=== PATIENT | female | born 1990 | race Caucasian/White ===

== ENCOUNTER 2017-05-02 02:08 | Emergency (ER) | payer SELFPAY ==
[~2017-05-02] VITALS: Ht 165.1 cm; Wt 45.4 kg
[2017-05-02] MEDS ORDERED: LORA-259 PO (02:22)
[2017-05-02] MEDS ORDERED: HYDR-3980 PO (02:22)
[2017-05-02] MEDS ORDERED: ONDANSETRON 4 MG/2 ML VIAL IV ONE (03:15)
[2017-05-02] MEDS ORDERED: KETOROLAC TROMETHAMINE 30 MG INJ IVP ONE (03:15)
[2017-05-02] MEDS ORDERED: IV NORMAL SALINE 1000 ML BAG IV ONE (03:15)
[2017-05-02 03:19] LABS: BASOPHILS # (AUTO) 0.1 K/uL (0.0-8.0); BASOPHILS % (AUTO) 1.1 % (0.0-2.0); EOSINOPHILS # (AUTO) 0.6 K/uL (0.0-0.7); EOSINOPHILS % (AUTO) 6.6 % (0.0-7.0); HEMATOCRIT 39.1 % (37-47); HEMOGLOBIN 13.5 G/DL (12.0-16.0); LYMPHOCYTES # (AUTO) 2.5 K/UL (0.8-4.8); LYMPHOCYTES % (AUTO) 27.3 % (20.5-51.5); MEAN CORPUSCULAR HEMOGLOBIN 29.4 UUG (27.0-31.0); MEAN CORPUSCULAR HGB CONC 35 g/dL (32.0-37.0); MONOCYTES # (AUTO) 0.6 K/UL (0.1-1.30); MONOCYTES % (AUTO) 6.4 % (0.0-11.0); NEUTROPHILS # (AUTO) 5.3 K/UL (1.8-8.9); NEUTROPHILS % (AUTO) 58.6 % (38.5-71.5); PLATELET COUNT (AUTO) 196 K/UL (150-450); RED BLOOD CELL COUNT(AUTO) 4.59 MIL/UL (4.2-5.4); WHITE BLOOD COUNT (AUTO) 9.1 K/UL (4.0-11.2)
[2017-05-02 03:26] LABS: CREATININE 0.8 mg/dL (0.6-1.3); POTASSIUM 3.5 mmol/L (3.5-5.1)
[2017-05-02] MEDS ORDERED: KETOROLAC TROMETHAMINE 30 MG INJ ONE (03:29)
[2017-05-02] MEDS ORDERED: ONDANSETRON 4 MG/2 ML VIAL ONE (03:29)
[2017-05-02] MEDS ORDERED: HYDROCODONE/APAP 5-325MG TABLET PO ONE (03:30)
[2017-05-02 03:31] LABS: BILIRUBIN,DIRECT 0.1 mg/dL (0.0-0.2); BILIRUBIN,TOTAL 0.3 mg/dL (0.2-1.0); TOTAL PROTEIN, SERUM 7.6 g/dL (6.4-8.2)
[2017-05-02 03:40] LABS: *BILIRUBIN,URIN NEGATIVE (NEGATIVE); *BLOOD, URINE NEGATIVE (NEGATIVE); *CLARITY,URINE CLEAR (CLEAR); *COLOR,URINE STRAW (YELLOW); *KETONES,URINE NEGATIVE (NEGATIVE); *PROTEIN,URINE NEGATIVE (NEGATIVE); *UROBILINOGEN,URINE 0.2 E.U./dl (NORMAL); LEUKOCYTE ESTERASE ,URINE NEGATIVE (NEGATIVE); NITRITE, URINE NEGATIVE (NEGATIVE); UGLUCOSE NEGATIVE (NEGATIVE)
[2017-05-02] MEDS ORDERED: HYDROCODONE/APAP 5-325MG TABLET ONE (03:49)
[2017-05-02 03:51] LABS: BACTERIA,URINE NONE SEEN /HPF (NONE SEEN); RBC,URINE 0-3 /HPF (0-3); WBC,URINE NONE SEEN /HPF (0-3)
[2017-05-02 03:52] LABS: SQUAMOUS EPITHELIAL CELL,UR MODERATE /HPF (NONE SEEN)
[2017-05-02] MEDS ORDERED: MORPHINE SULFATE 4 MG/1 ML DISP.SYRIN IV ONE (04:00)
[2017-05-02] MEDS ORDERED: MORPHINE SULFATE 10 MG/1 ML DISP.SYRIN ONE (04:12)
[2017-05-02] MEDS ORDERED: HYDROMORPHONE 1 MG/1 ML DISP.SYRIN IV ONE (04:30)
[2017-05-02] MEDS ORDERED: HYDROMORPHONE 2 MG/1 ML DISP.SYRIN ONE (04:36)
--- NOTE | 2017-05-02 05:34 | NUR ---
Patient discharged to home in stable conditon. Written and verbal after care instructions given. Patient verbalizes understanding of instructions.
[2017-05-02 05:35] VITALS: BP 110/68
== END 2017-05-02 05:39 | disposition home or self-care (01) ==
LOC: ER 02:10
DX: N83.202 Unspecified ovarian cyst, left side (principal); N20.0 Calculus of kidney; Z87.442 Personal history of urinary calculi; Z88.6 Allergy status to analgesic agent; F17.200 Nicotine dependence, unspecified, uncomplicated
CPT/HCPCS: 36415; 74176; 76856; 80048; 80076; 81001; 84703; 85025; 87086; 96361; 96374; 96375; 99285; A4663; J1170; J1885; J2270; J2405; J7030

== ENCOUNTER 2021-03-21 22:35 | Emergency (ER) | payer SELFPAY ==
[~2021-03-21 22:35] MED LIST: HYDR-3980 PO; LORA-259 PO
--- NOTE | 2021-03-21 22:48 | NUR ---
Patient was called to be traiged, but was not present in waiting room or outside ER.
--- NOTE | 2021-03-21 22:55 | NUR ---
Patient was called to be traiged, but was not present in the waiting room or outside of ER.
--- NOTE | 2021-03-21 23:04 | NUR ---
Patient was called to be traiged but was not present. Patient was not traiged or seen by ERMD.
== END 2021-03-21 23:05 | disposition left against medical advice (07) ==
LOC: ER 22:36
DX: Z53.21 Procedure and treatment not carried out due to patient leaving prior to being seen by health care provider (principal)